=== PATIENT | female | born 1960 | race Caucasian/White ===

== ENCOUNTER 2016-08-20 23:52 | Emergency (ER) | payer OTHER ==
[~2016-08-20] VITALS: Ht 160 cm; Wt 45.0 kg
[2016-08-20 23:52] VITALS: RESP 15; O2SAT 98
[~2016-08-20 23:52] MED LIST: CITA20TA4 PO; LAMO100 PO; LORA1TAB PO; PNEU13P IM
[2016-08-21] MEDS ORDERED: SODIUM CHLOR 0.9% 1000 ML INJ 1,000 ML IV ONE ×2 (00:30→02:45)
--- NOTE | 2016-08-21 00:39 | PD ---
Physical Exam Narrative General: The patient is a well-developed well-nourished female, drowsy on my arrival to the room, however she is able to be awakened when uncovered repeatedly states that she is cold. The patient when awakened is able to answer orientation questions without difficulty. Head and Neck exam: Head is normocephalic atraumatic. Eyes: Pupils are equal round and reactive to light. Nose: Midline septum with pink mucous membranes Mouth: Dentition unremarkable. Moist mucus membranes. Posterior oropharynx is not erythematous. No tonsillar hypertrophy. Uvula midline. Airway patent. Neck: No palpable lymphadenopathy. No nuchal rigidity. No thyromegaly. Cardiovascular: Regular rate and rhythm without murmurs, gallops, or rubs. Lungs: Clear to auscultation bilaterally. No wheezes, rhonchi, or rales. Abdomen: Soft, without tenderness to palpation in all 4 quadrants of the abdomen. No guarding, rebound, or rigidity. Normal bowel sounds are audible. Extremities: No clubbing, cyanosis, or edema. 2+ pulses in all 4 extremities. Back: No spinous process tenderness to palpation. No costovertebral angle tenderness to palpation. Neurologic Exam: She is drowsy on examination and uncooperative with formal neurologic examination, however she does spontaneously move all extremities with 5 over 5 strength and has intact sensation over all dermatomes. She has no evidence of facial asymmetry. She is oriented to person, place, time, and situation. Skin Exam: No rash noted. Intact skin that is warm and dry. Data Data Last Documented VS Vital Signs Date Time Temp Pulse Resp B/P Pulse Ox O2 Delivery O2 Flow Rate FiO2 08/21/16 02:56 76 14 105/76 98 Room Air 08/20/16 23:52 2 Orders Complete Blood Count With Diff (08/21/16 00:16) Comprehensive Metabolic Panel (08/21/16 00:16) Electrocardiogram (08/21/16 00:16) Oximetry (08/21/16 00:16) Iv Access Insert/Monitor (08/21/16 00:16) Ecg Monitoring (08/21/16 00:16) Oxygen Administration (08/21/16 00:16) Psych Screen (08/21/16 00:16) Blood Glucose (08/21/16 00:16) Drug Screen, Random Urine (08/21/16 00:16) Alcohol (Ethanol) (08/21/16 00:16) Salicylates (Aspirin) (08/21/16 00:16) Tylenol (Acetaminophen) (08/21/16 00:16) Sodium Chlor 0.9% 1000 Ml Inj (Ns 1000 M (08/21/16 00:30) Call Poison Control (08/21/16 00:16) ^ Seizure Precautions (08/21/16 00:36) Sodium Chlor 0.9% 1000 Ml Inj (Ns 1000 M (08/21/16 02:45) Thiamine Inj (Thiamine Inj) (08/21/16 02:45) Labs Laboratory Tests Test 08/21/16 00:10 White Blood Count 5.1 TH/MM3 Red Blood Count 4.10 MIL/MM3 Hemoglobin 12.1 GM/DL Hematocrit 35.8 % Mean Corpuscular Volume 87.5 FL Mean Corpuscular Hemoglobin 29.5 PG Mean Corpuscular Hemoglobin 33.7 % Concent Red Cell Distribution Width 13.3 % Platelet Count 177 TH/MM3 Mean Platelet Volume 9.2 FL Neutrophils (%) (Auto) 39.7 % Lymphocytes (%) (Auto) 46.3 % Monocytes (%) (Auto) 4.2 % Eosinophils (%) (Auto) 9.2 % Basophils (%) (Auto) 0.6 % Neutrophils # (Auto) 2.0 TH/MM3 Lymphocytes # (Auto) 2.4 TH/MM3 Monocytes # (Auto) 0.2 TH/MM3 Eosinophils # (Auto) 0.5 TH/MM3 Basophils # (Auto) 0.0 TH/MM3 CBC Comment DIFF FINAL Differential Comment Sodium Level 142 MEQ/L Potassium Level 3.3 MEQ/L Chloride Level 110 MEQ/L Carbon Dioxide Level 26.2 MEQ/L Anion Gap 6 MEQ/L Blood Urea Nitrogen 7 MG/DL Creatinine 0.71 MG/DL Estimat Glomerular Filtration 85 ML/MIN Rate Random Glucose 88 MG/DL Calcium Level 7.7 MG/DL Total Bilirubin 0.1 MG/DL Aspartate Amino Transf 15 U/L (AST/SGOT) Alanine Aminotransferase 15 U/L (ALT/SGPT) Alkaline Phosphatase 78 U/L Total Protein 5.9 GM/DL Albumin 3.4 GM/DL Salicylates Level 3.9 MG/DL Acetaminophen Level 2.7 MCG/ML Ethyl Alcohol Level 141 MG/DL [facility] Medical Record Reviewed: Yes Supervised Visit with MERRITT: No Narrative Course During the course of the patients emergency department visit, the patients history, examination, and differential diagnosis were reviewed with the patient. The patient had IV access obtained and blood work sent for analysis. The patient was placed on a bus driver/monitor with oximetry and blood pressure monitoring. The patient's case is checked out to me by Dr. Johnson who initially did the evaluation on the patient. Please see her complete history and physical. The patient's case was checked out to me at the conclusion of her shift. The patient is reportedly under a Perez act. The patient was initially provided normal saline 1 L IV fluid bolus. The patient was given thiamine 100 mg IV, a second liter of normal saline IV fluids while being observed. The patients laboratory studies were reviewed and remarkable for a white count of 5.1, hemoglobin 12.1, platelets 177 with 46.3 lymphocytes, 9.2 eosinophils, CMP is remarkable for a potassium of 3.3, chloride 110, GFR of 85, calcium 7.7, total bilirubin 0.1, total protein 5.9, alcohol level CXLI, acetaminophen 2.7, salicylate 3.9. The patient's mild hypokalemia was supplemented orally. Poison control was contacted regarding this patient's case. The patient's nurse discussed the patient's case with poison control and as the patient has remained stable during her emergency department evaluation other than experiencing drowsiness, the patient can be medically cleared. The patient has therefore been medically cleared for evaluation by the psychiatric screener under a Perez act. Diagnosis Primary Impression: Depression with suicidal ideation Additional Impressions: Intentional drug overdose Qualified Code: T50.902A - Intentional drug overdose, initial encounter Acute alcohol intoxication Qualified Code: F10.929 - Acute alcohol intoxication, with unspecified complication Leti May MD August 21, 2016 00:39
--- NOTE | 2016-08-21 00:41 | PD ---
HPI Chief Complaint: OD/ Ingestion Time Seen by Provider: 00:16 Travel History International Travel<30 days: No Contact w/Intl Traveler<30days: No Traveled to known affect area: No History of Present Illness HPI 56-year-old female was brought in as a Perez act. She was drinking alcohol and had an argument with her boyfriend. She took 5 of her 50 mg trazodone's. Then at 10:30 PM approximately. No history of vomiting after that. When I went to see the patient she was poorly responsive. Unable to give any kind of meaningful history. Her blood pressure was 85/52. PFSH Past Medical History Narrative Medical List of her past medical, surgical, social and family history was reviewed from the nursing note. Bipolar Disorder: Yes Anxiety: Yes Depression: Yes Diminished Hearing: No Neurologic: Yes (RESTLESS LEG SYNDROME) Immunizations Current: Yes ?: Not Menopausal: Yes Past Surgical History Section: Yes (TIMES 2) Social History Alcohol Use: Yes (OCC) Tobacco Use: Yes (1/2 ppd) Substance Use: No Allergies-Medications (Allergen,Severity, Reaction): Coded Allergies: Penicillin (Verified Allergy, Mild, HIVES, 10/25/14) Comments List of her allergies reviewed from the nursing note. Reported Meds & Prescriptions Reported Meds & Active Scripts Active Reported Ativan (Lorazepam) 0.5 Mg Tab Unknown Dose PO Q4H PRN Paxil (Paroxetine HCl) 10 Mg Tab Unknown Dose PO DAILY Trazodone (Trazodone HCl) 50 Mg Tab 50 Mg PO HS Narrative Medication List of her home medications reviewed from the nursing note. Review of Systems Except as stated in HPI: all other systems reviewed are Neg Physical Exam Narrative GENERAL: Poorly responsive, strong alcohol smell on her breath SKIN: Focused skin assessment warm/dry. HEAD: Atraumatic. Normocephalic. EYES: Pupils equal and round. No scleral icterus. No injection or drainage. ENT: No nasal bleeding or discharge. Mucous membranes pink and moist. NECK: Trachea midline. No JVD. CARDIOVASCULAR: Regular rate and rhythm. No murmur appreciated. RESPIRATORY: No accessory muscle use. Clear to auscultation. Breath sounds equal bilaterally. GASTROINTESTINAL: Abdomen soft, non-tender, nondistended. Hepatic and splenic margins not palpable. MUSCULOSKELETAL: No obvious deformities. No clubbing. No cyanosis. No edema. NEUROLOGICAL: GCS of 8 PSYCHIATRIC: Unable to assess Data Data Last Documented VS Vital Signs Date Time Temp Pulse Resp B/P Pulse Ox O2 Delivery O2 Flow Rate FiO2 08/21/16 12:00 80 16 137/63 98 Room Air 08/20/16 23:52 2 Orders Complete Blood Count With Diff (08/21/16 00:16) Comprehensive Metabolic Panel (08/21/16 00:16) Electrocardiogram (08/21/16 00:16) Oximetry (08/21/16 00:16) Iv Access Insert/Monitor (08/21/16 00:16) Ecg Monitoring (08/21/16 00:16) Oxygen Administration (08/21/16 00:16) Psych Screen (08/21/16 00:16) Blood Glucose (08/21/16 00:16) Drug Screen, Random Urine (08/21/16 00:16) Alcohol (Ethanol) (08/21/16 00:16) Salicylates (Aspirin) (08/21/16 00:16) Tylenol (Acetaminophen) (08/21/16 00:16) Sodium Chlor 0.9% 1000 Ml Inj (Ns 1000 M (08/21/16 00:30) Call Poison Control (08/21/16 00:16) ^ Seizure Precautions (08/21/16 00:36) Sodium Chlor 0.9% 1000 Ml Inj (Ns 1000 M (08/21/16 02:45) Thiamine Inj (Thiamine Inj) (08/21/16 02:45) Labs Laboratory Tests Test 08/21/16 08/21/16 00:10 01:00 White Blood Count 5.1 TH/MM3 Red Blood Count 4.10 MIL/MM3 Hemoglobin 12.1 GM/DL Hematocrit 35.8 % Mean Corpuscular Volume 87.5 FL Mean Corpuscular Hemoglobin 29.5 PG Mean Corpuscular Hemoglobin 33.7 % Concent Red Cell Distribution Width 13.3 % Platelet Count 177 TH/MM3 Mean Platelet Volume 9.2 FL Neutrophils (%) (Auto) 39.7 % Lymphocytes (%) (Auto) 46.3 % Monocytes (%) (Auto) 4.2 % Eosinophils (%) (Auto) 9.2 % Basophils (%) (Auto) 0.6 % Neutrophils # (Auto) 2.0 TH/MM3 Lymphocytes # (Auto) 2.4 TH/MM3 Monocytes # (Auto) 0.2 TH/MM3 Eosinophils # (Auto) 0.5 TH/MM3 Basophils # (Auto) 0.0 TH/MM3 CBC Comment DIFF FINAL Differential Comment Sodium Level 142 MEQ/L Potassium Level 3.3 MEQ/L Chloride Level 110 MEQ/L Carbon Dioxide Level 26.2 MEQ/L Anion Gap 6 MEQ/L Blood Urea Nitrogen 7 MG/DL Creatinine 0.71 MG/DL Estimat Glomerular Filtration 85 ML/MIN Rate Random Glucose 88 MG/DL Calcium Level 7.7 MG/DL Total Bilirubin 0.1 MG/DL Aspartate Amino Transf 15 U/L (AST/SGOT) Alanine Aminotransferase 15 U/L (ALT/SGPT) Alkaline Phosphatase 78 U/L Total Protein 5.9 GM/DL Albumin 3.4 GM/DL Salicylates Level 3.9 MG/DL Acetaminophen Level 2.7 MCG/ML Ethyl Alcohol Level 141 MG/DL Urine Opiates Screen NEG Urine Barbiturates Screen NEG Urine Amphetamines Screen NEG Urine Benzodiazepines Screen NEG Urine Cocaine Screen POS Urine Cannabinoids Screen NEG MDM Medical Decision Making Medical Screen Exam Complete: Yes Emergency Medical Condition: Yes Medical Record Reviewed: Yes Interpretation(s) Twelve-lead EKG was reviewed by me. Normal sinus rhythm, normal axis, nonspecific ST-T wave changes. Heart rate of 50 bpm. Differential Diagnosis Acute alcohol intoxication, altered mental status, intentional overdose Narrative Course 12:39 AM given her GCS she has been moved to the high acuity medical pod. I have transferred her care to Dr. May. Awaiting blood test results. I've ordered 1 L of IV fluid bolus. I've asked the nurse to call poison control. Seizure precautions were ordered which could be due to trazodone. Procedures EKG Prior to Arrival: No Diagnosis Primary Impression: Intentional drug overdose Qualified Code: T50.902A - Intentional drug overdose, initial encounter Additional Impressions: Acute alcohol intoxication Qualified Code: F10.929 - Acute alcohol intoxication, with unspecified complication Suicide gesture Qualified Code: X83.8XXA - Suicide gesture, initial encounter Major depression Qualified Code: F32.9 - Major depressive disorder with single episode, remission status unspecified Rosanna Johnson MD August 21, 2016 00:41
[2016-08-21 00:43] VITALS: BP 100/56; PULSE 64; RESP 18; O2SAT 100
[2016-08-21] MEDS ORDERED: LORA-392 PO (00:44)
[2016-08-21] MEDS ORDERED: PAXI10TA2 PO (00:44)
[2016-08-21] MEDS ORDERED: TRAZ50TA12 PO (00:44)
[2016-08-21 00:59] LABS: BASOPHIL % 0.6 % (0.0-2.0); EOSINOPHIL # 0.5 TH/MM3 (0-0.4); EOSINOPHIL % 9.2 % (0.0-4.0); HEMATOCRIT 35.8 % (35.0-46.0); HEMO FLAGS DIFF FINAL; LYMPH % 46.3 % (9.0-44.0); LYMPHOCYTE # 2.4 TH/MM3 (1.0-4.8); MEAN CELL VOLUME 87.5 FL (80.0-100.0); MEAN CORPUSCULAR HEMOGLOBIN 29.5 PG (27.0-34.0); MEAN CORPUSCULAR HGB CONC 33.7 % (32.0-36.0); MONO % 4.2 % (0.0-8.0); NEUT % 39.7 % (16.0-70.0); PLATELET COUNT 177 TH/MM3 (150-450); RED CELL DISTRIBUTION WIDTH 13.3 % (11.6-17.2); WHITE BLOOD COUNT 5.1 TH/MM3 (4.0-11.0)
[2016-08-21 01:09] LABS: ALT (GPT) 15 U/L (10-53); ANION GAP 6 MEQ/L (5-15); AST (GOT) 15 U/L (15-37); BICARBONATE 26.2 MEQ/L (21.0-32.0); BLOOD UREA NITROGEN 7 MG/DL (7-18); CHLORIDE 110 MEQ/L (98-107); GLOMERULAR FILTRATION RATE 85 ML/MIN (>89); POTASSIUM 3.3 MEQ/L (3.5-5.1); SODIUM (NA) 142 MEQ/L (136-145)
[2016-08-21 01:11] LABS: ACETAMINOPHEN 2.7 MCG/ML (10.0-30.0); ALKALINE PHOSPHATASE 78 U/L (45-117); TOTAL BILIRUBIN ADULT 0.1 MG/DL (0.2-1.0)
[2016-08-21] MEDS ORDERED: THIAMINE INJ 100 MG in SODIUM CHLORIDE 0.9% INJ 100 ML IV ONE (02:45)
[2016-08-21 02:56] VITALS: BP 105/76; PULSE 76; RESP 14; O2SAT 98
[2016-08-21 06:38] VITALS: BP 122/69; PULSE 74; RESP 14; O2SAT 97
[2016-08-21 09:35] LABS: AMPHETAMINE, URINE NEG (NEG); BARBITURATES, URINE NEG (NEG); COCAINE, URINE POS (NEG)
[2016-08-21 12:00] VITALS: BP 137/63; PULSE 80; RESP 16; O2SAT 98
--- NOTE | 2016-08-21 12:14 | PD ---
History of Present Illness Chief Complaint: OD/ Ingestion Time Seen by Provider: 12:00 Travel History International Travel<30 Days: No Contact w/Intl Traveler<30days: No Known affected area: No Legal Status Legal Status: Perez Act History of Present Illness: History of Present Illness HPI 56-year-old female with a reported history of bipolar depression was brought in as a Perez act initiated by [place] [employer]. As per the BA report " she was told that she may be facing eviction. She was arguing with her and she began stressing out and she took 6 Trazodone in an attempt to harm herself" She was drinking alcohol and had an argument with her boyfriend. Patient was monitored in main ed. Seen. Record reviewed. Current BAL of 141 and positive toxicology for cocaine. She has not presented any behavioral concerns since she has been in ED. Asleep but awakens easily. Alert and oriented female who is maintaining basic hygiene. Speech is clear, logical, no pressure. No psychosis. No jennifer or hypomania. Denies suicidal or homicidal ideation. " I took the pills after an argument to go to sleep and not to kill myself" . If I wanted to hurt myself there were other pills that I could have taken. Patient is currently denying any acute psychiatric symptomatology and is requesting discharge as she has to work. PFSH Past Medical History Bipolar Disorder: Yes Anxiety: Yes Depression: Yes Diminished Hearing: No Neurologic: Yes (RESTLESS LEG SYNDROME) Immunizations Current: Yes ?: Not Menopausal: Yes Past Surgical History Section: Yes (TIMES 2) Psychiatric History Psychiatric History Not in outpatient treatment. PCP prescribes psychiatric medication. Has been a patient at [facility] outpatient. Hx of SIB by cutting History of Inpatient Treatment: Yes ([facility] at age 41 years. ) Guns or firearms in home: No Social History . Lives with . Works as a dramatic teacher. Hx Alcohol Use: Yes (OCC) Hx Tobacco Use: Yes (1/2 ppd) Hx Substance Use: Yes (Reports previous hx) Substance Use Type: Alcohol, Cocaine Hx of Substance Use Treatment: No Family Psychiatric History None reported. Allergies-Medications (Allergen,Severity, Reaction): Coded Allergies: Penicillin (Verified Allergy, Mild, HIVES, 10/25/14) Reported Meds & Prescriptions Reported Meds & Active Scripts Active Reported Ativan (Lorazepam) 0.5 Mg Tab Unknown Dose PO Q4H PRN Paxil (Paroxetine HCl) 10 Mg Tab Unknown Dose PO DAILY Trazodone (Trazodone HCl) 50 Mg Tab 50 Mg PO HS Review of Systems Except as stated in HPI: all other systems reviewed are Neg Musculoskeletal: COMPLAINS OF: Joint pain (Hips) Exam Alert: Yes Morning View: Person (ox4) Mood: Calm Affect: Appropriate Speech: Clear, Logical Eye Contact: Normal Memory Intact: Comment (not impaired) Hallucinations: Other (negative) Delusions: No Suicidal: Ideation (denies any) Homicidal: Ideation (denioes) Insight/Judgement Fair. Not impaired MDM Medical Decision Making Medical Record Reviewed: Yes Assessment/Plan 56 year old female with history of bipolar depression who in context of alcohol and cocaine intoxication was arguing with her and then took a reported 300 mg of Trazodone . She deeis that this was a sucide attempt but rather that she wanted to sleep. Patient also is minimizing her use of alcohol and cocaine. At this time she does not meet criteria for BA. The BA will be lifted and she will be discharged home. Follow up with her PCP. Does not meet BA criteria Cleared for discharge by psychiatry. Orders Complete Blood Count With Diff (08/21/16 00:16) Comprehensive Metabolic Panel (08/21/16 00:16) Electrocardiogram (08/21/16 00:16) Oximetry (08/21/16 00:16) Iv Access Insert/Monitor (08/21/16 00:16) Ecg Monitoring (08/21/16 00:16) Oxygen Administration (08/21/16 00:16) Psych Screen (08/21/16 00:16) Blood Glucose (08/21/16 00:16) Drug Screen, Random Urine (08/21/16 00:16) Alcohol (Ethanol) (08/21/16 00:16) Salicylates (Aspirin) (08/21/16 00:16) Tylenol (Acetaminophen) (08/21/16 00:16) Sodium Chlor 0.9% 1000 Ml Inj (Ns 1000 M (5/16/17 00:30) Call Poison Control (08/21/16 00:16) ^ Seizure Precautions (08/21/16 00:36) Sodium Chlor 0.9% 1000 Ml Inj (Ns 1000 M (08/21/16 02:45) Thiamine Inj (Thiamine Inj) (08/21/16 02:45) Results Vital Signs Date Time Temp Pulse Resp B/P Pulse Ox O2 Delivery O2 Flow Rate FiO2 08/21/16 06:38 74 14 122/69 97 Room Air 08/21/16 02:56 76 14 105/76 98 Room Air 08/21/16 00:43 64 18 100/56 100 Room Air 08/20/16 23:52 98 Nasal Cannula 2 08/20/16 23:52 75 15 98 Room Air 08/20/16 23:52 15 98 Nasal Cannula 2 Laboratory Tests Test 08/21/16 08/21/16 00:10 01:00 White Blood Count 5.1 Red Blood Count 4.10 Hemoglobin 12.1 Hematocrit 35.8 Mean Corpuscular Volume 87.5 Mean Corpuscular Hemoglobin 29.5 Mean Corpuscular Hemoglobin 33.7 Concent Red Cell Distribution Width 13.3 Platelet Count 177 Mean Platelet Volume 9.2 Neutrophils (%) (Auto) 39.7 Lymphocytes (%) (Auto) 46.3 Monocytes (%) (Auto) 4.2 Eosinophils (%) (Auto) 9.2 Basophils (%) (Auto) 0.6 Neutrophils # (Auto) 2.0 Lymphocytes # (Auto) 2.4 Monocytes # (Auto) 0.2 Eosinophils # (Auto) 0.5 Basophils # (Auto) 0.0 CBC Comment DIFF FINAL Differential Comment Sodium Level 142 Potassium Level 3.3 Chloride Level 110 Carbon Dioxide Level 26.2 Anion Gap 6 Blood Urea Nitrogen 7 Creatinine 0.71 Estimat Glomerular Filtration 85 Rate Random Glucose 88 Calcium Level 7.7 Total Bilirubin 0.1 Aspartate Amino Transf 15 (AST/SGOT) Alanine Aminotransferase 15 (ALT/SGPT) Alkaline Phosphatase 78 Total Protein 5.9 Albumin 3.4 Salicylates Level 3.9 Acetaminophen Level 2.7 Ethyl Alcohol Level 141 Urine Opiates Screen NEG Urine Barbiturates Screen NEG Urine Amphetamines Screen NEG Urine Benzodiazepines Screen NEG Urine Cocaine Screen POS Urine Cannabinoids Screen NEG Diagnosis Primary Impression: Acute alcohol intoxication Additional Impression: bipolar disorder Ruled Out: Depression with suicidal ideation, Intentional drug overdose Psychiatrically Cleared: Yes Med/ Other Pt Specific Info: No Change to Meds Disposition: 01 DISCHARGE HOME Condition: Stable Problem Qualifiers Primary Impression: Acute alcohol intoxication Qualified Code: F10.920 - Acute alcohol intoxication, uncomplicated BrownAkanksha Estevez [facility] August 21, 2016 12:13
--- NOTE | 2016-08-21 14:02 | EKG ---
Date Performed: 08/21/2016 Time Performed: 00:03:42 PTAGE: 56 years EKG: Sinus rhythm NORMAL ECG NO PREVIOUS TRACING DOCTOR: Silas Montemayor Interpretating Date/Time 08/21/2016 14:00:54
== END 2016-08-21 13:40 | disposition home or self-care (01) ==
LOC: NEPE 23:52
DX: T43.212A Poisoning by selective serotonin and norepinephrine reuptake inhibitors, intentional self-harm, initial encounter (principal); T14.91 Suicide attempt; F10.129 Alcohol abuse with intoxication, unspecified; F41.8 Other specified anxiety disorders; F17.210 Nicotine dependence, cigarettes, uncomplicated; F14.90 Cocaine use, unspecified, uncomplicated; Y90.6 Blood alcohol level of 120-199 mg/100 ml; Z88.0 Allergy status to penicillin
CPT/HCPCS: 80053; 80307; 85025; 93005; 96374; 96375; 96376; 99284; J3411; J7030

== ENCOUNTER 2016-10-10 17:05 | Emergency (ER) | payer OTHER ==
[~2016-10-10] VITALS: Ht 167.6 cm; Wt 56.8 kg
[~2016-10-10 17:05] MED LIST changes: -CITA20TA4 PO; -LAMO100 PO; +LORA-392 PO; -LORA1TAB PO; +PAXI10TA2 PO; -PNEU13P IM; +TRAZ50TA12 PO
[2016-10-10 17:09] VITALS: BP 95/60; PULSE 90; RESP 16; TEMP 98.3; O2SAT 98
[2016-10-10] MEDS ORDERED: ROPI.25 PO (17:24)
[2016-10-10] MEDS ORDERED: LIDOCAINE HCL 1% PF 30 ML VIAL ONE (17:59)
--- NOTE | 2016-10-10 18:36 | PD ---
HPI Chief Complaint: Skin Problem Time Seen by Provider: 18:00 Travel History International Travel<30 days: No Contact w/Intl Traveler<30days: No Traveled to known affect area: No History of Present Illness HPI 56-year-old female presents to the emergency room for evaluation of an abscess to her abdomen that started about 1 week ago as a bug bite. Patient states it was probably a mosquito bite and very itchy at first. She does not remember itching it significantly. She states about 4 days ago it began to become painful and yesterday it developed redness. She has had no drainage. She poked a needle in it yesterday to try to drain it. She denies history of diabetes. PFSH Past Medical History Bipolar Disorder: Yes Anxiety: Yes Depression: Yes Diminished Hearing: No Neurologic: Yes (RESTLESS LEG SYNDROME) Immunizations Current: Yes Influenza Vaccination: Yes ?: Not Menopausal: Yes Past Surgical History Section: Yes (TIMES 2) Social History Alcohol Use: Yes (OCC) Tobacco Use: Yes (1/2 ppd) Substance Use: Yes (Reports previous hx) Allergies-Medications (Allergen,Severity, Reaction): Coded Allergies: Penicillin (Verified Allergy, Mild, HIVES, 10/10/16) Reported Meds & Prescriptions Reported Meds & Active Scripts Active Reported Requip (Ropinirole HCl) 0.25 Mg Tab 0.25 Mg PO HS Paxil (Paroxetine HCl) 10 Mg Tab Unknown Dose PO DAILY Trazodone (Trazodone HCl) 50 Mg Tab 50 Mg PO HS Review of Systems Except as stated in HPI: all other systems reviewed are Neg Physical Exam Narrative GENERAL: Well-nourished, well-developed female in no acute distress. Afebrile. Ambulatory. SKIN: Focused skin assessment warm/dry. There is an indurated area in the epigastric region which measures about 3 cm in diameter. It is fluctuant but there is no pointing or drainage. There is a zone of inflammation around it but no lymphangitis. HEAD: Normocephalic. EYES: No scleral icterus. No injection or drainage. NECK: Supple, trachea midline. No JVD or lymphadenopathy. CARDIOVASCULAR: Regular rate and rhythm without murmurs, gallops, or rubs. RESPIRATORY: Breath sounds equal bilaterally. No accessory muscle use. PSYCHIATRIC: No delusional thought processes. No hallucinations. Data Data Last Documented VS Vital Signs Date Time Temp Pulse Resp B/P Pulse Ox O2 Delivery O2 Flow Rate FiO2 10/10/16 17:09 98.3 90 16 95/60 98 Orders Lidocaine Pf 1% Inj (Xylocaine-Mpf 1% In (10/10/16 17:59) MDM Medical Decision Making Medical Screen Exam Complete: Yes Emergency Medical Condition: Yes Medical Record Reviewed: Yes Differential Diagnosis Abscess, cellulitis, folliculitis Narrative Course 56-year-old female presents to the emergency room for evaluation of an abscess to the periumbilical region that has been present for the past week. Patient got bit by a mosquito bite one week ago and developed redness and pain to the area subsequently. She denies systemic signs of infection. Vital signs stable. Patient is afebrile and well-appearing in the emergency room. Physical exam reveals a 3 cm abscess that is extremely tender to palpation on the abdomen. No lymphangitis. Abscess was drained, see procedure note for details. Patient discharged with Bactrim and told to follow up with a primary care physician or return for worsening symptoms. She understands and agrees to plan. Procedures Procedure Narrative INCISION AND DRAINAGE OF ABSCESS: The area was prepped and was sterilely draped. A subcutaneous wheal of 1% lidocaine with a total number 2 mL was used to anesthetize the area properly. A number 11 scalpel was used to make a 1 cm incision across the area of the abscess. The abscess was drained, complex loculations were broken down, and irrigated with normal saline. Cultures were obtained. Sterile dressing applied. Diagnosis Primary Impression: Abscess Referrals: Primary Care Physician Patient Instructions: Abscess (ED), General Instructions Additional Instructions: Rest and drink plenty of fluids. Take Bactrim as directed, until gone. Follow up with a primary care physician. Return to emergency room for worsening symptoms, as discussed. Med/Other Pt SpecificInfo: Prescription(s) given Disposition: 01 DISCHARGE HOME Condition: Stable Danielle Camejo Oct 10, 2016 18:36
[2016-10-10] MEDS ORDERED: BACT800T5 PO (19:09)
[2016-10-10] MEDS ORDERED: LIDOCAINE HCL 1% PF 30 ML VIAL INFIL ONE (19:15)
== END 2016-10-10 19:16 | disposition home or self-care (01) ==
LOC: PHEFT 17:05
DX: L02.211 Cutaneous abscess of abdominal wall (principal); B95.61 Methicillin susceptible Staphylococcus aureus infection as the cause of diseases classified elsewhere; F17.200 Nicotine dependence, unspecified, uncomplicated; Z86.59 Personal history of other mental and behavioral disorders; Z86.69 Personal history of other diseases of the nervous system and sense organs
CPT/HCPCS: 10060; 86403; 87070; 87186; 87205

== ENCOUNTER 2017-01-11 12:30 | Emergency (ER) | payer OTHER ==
[~2017-01-11] VITALS: Ht 167.6 cm; Wt 56.5 kg
[2017-01-11] VITALS (12 sets, daily range): BP systolic 94–142; BP diastolic 51–86; PULSE 71–83; RESP 15–22; TEMP 98.6; O2SAT 96–100
[~2017-01-11 12:30] MED LIST changes: +BACT800T5 PO; -LORA-392 PO; +ROPI.25 PO
[2017-01-11] MEDS ORDERED: LORA-373 PO (12:52)
[2017-01-11] MEDS ORDERED: SODIUM CHLOR 0.9% 1000 ML INJ 1,000 ML IV ONE (13:20)
[2017-01-11] MEDS ORDERED: SODIUM CHLORIDE 0.9% FLUSH 10 ML FLUSH IVF PRN (13:30)
--- NOTE | 2017-01-11 13:30 | PD ---
HPI Chief Complaint: OD/ Ingestion Time Seen by Provider: 13:11 Travel History International Travel<30 days: No Contact w/Intl Traveler<30days: No Traveled to known affect area: No History of Present Illness HPI This 56-year-old female is brought in after an overdose. She says that if he hours ago she took about 18 tablets of paroxetine. She is feeling tired. She says that her intent was to kill her self. She has overdosed in the past, usually on sleeping pills she has a history of depression. She denies recent alcohol use. Has used cocaine in the past but not today. She does not have a history of high blood pressure or diabetes. He PFSH Past Medical History Bipolar Disorder: Yes Anxiety: Yes Depression: Yes Diminished Hearing: No Neurologic: Yes (RESTLESS LEG SYNDROME) Immunizations Current: Yes ?: Not Menopausal: Yes Past Surgical History Section: Yes (TIMES 2) Social History Alcohol Use: Yes (OCC) Tobacco Use: Yes (1/2 ppd) Substance Use: Yes (RECENT COCAINE USE) Allergies-Medications (Allergen,Severity, Reaction): Coded Allergies: penicillin G (Unverified Allergy, Mild, HIVES, 01/11/17) Reported Meds & Prescriptions Reported Meds & Active Scripts Active Reported Lorazepam 0.5 Mg Tab Unknown Dose PO DAILY PRN Requip (Ropinirole HCl) 0.25 Mg Tab 0.25 Mg PO HS Paxil (Paroxetine HCl) 10 Mg Tab 20 Mg PO DAILY Trazodone (Trazodone HCl) 50 Mg Tab 50 Mg PO HS Review of Systems General / Constitutional: No: Fever, Chills Eyes: No: Diploplia, Blurred Vision HENT: No: Headaches, Vertigo Cardiovascular: No: Chest Pain or Discomfort, Palpitations Respiratory: No: Cough, Shortness of Breath Gastrointestinal: No: Nausea, Vomiting Genitourinary: No: Urgency, Frequency Musculoskeletal: No: Myalgias, Arthralgias Skin: No Rash, No Itching Neurologic: No: Weakness, Dizziness Hematologic/Lymphatic: No: Easy Bruising Physical Exam Narrative GENERAL: Well-developed female SKIN: Focused skin assessment warm/dry. HEAD: Atraumatic. Normocephalic. EYES: Pupils equal and round. No scleral icterus. No injection or drainage. ENT: No nasal bleeding or discharge. Mucous membranes pink and moist. NECK: Trachea midline. No JVD. CARDIOVASCULAR: Regular rate and rhythm. No murmur appreciated. RESPIRATORY: No accessory muscle use. Clear to auscultation. Breath sounds equal bilaterally. GASTROINTESTINAL: Abdomen soft, non-tender, nondistended. Hepatic and splenic margins not palpable. MUSCULOSKELETAL: No obvious deformities. No clubbing. No cyanosis. No edema. NEUROLOGICAL: Awake and alert. No obvious cranial nerve deficits. Motor grossly within normal limits. Normal speech. PSYCHIATRIC: Depressed mood and affect; insight and judgment limited. Patient does say she is suicidal Data Data Last Documented VS Vital Signs Date Time Temp Pulse Resp B/P (MAP) Pulse Ox O2 Delivery O2 Flow Rate FiO2 01/11/17 13:20 76 20 131/84 (100) 100 01/11/17 12:41 98.6 Orders Orders Electrocardiogram (01/11/17 13:20) Complete Blood Count With Diff (01/11/17 13:20) Comprehensive Metabolic Panel (01/11/17 13:20) Urinalysis - C+S If Indicated (01/11/17 13:20) Iv Access Insert/Monitor (01/11/17 13:20) Ecg Monitoring (01/11/17 13:20) Oximetry (01/11/17 13:20) Sodium Chloride 0.9% Flush (Ns Flush) (01/11/17 13:30) Sodium Chlor 0.9% 1000 Ml Inj (Ns 1000 M (01/11/17 13:20) Drug Screen, Random Urine (01/11/17 13:20) Alcohol (Ethanol) (01/11/17 13:20) Tylenol (Acetaminophen) (01/11/17 13:20) MDM Medical Decision Making Medical Screen Exam Complete: Yes Emergency Medical Condition: Yes Medical Record Reviewed: Yes Differential Diagnosis Differential includes overdose, suicidal intent Narrative Course Patient will be evaluated medically and observed. If medically cleared she will be Nicholas Saenz MD Jan 11, 2017 13:30
[2017-01-11 13:51] LABS: AUTOMATED NEUTROPHIL # 5.1 TH/MM3 (1.8-7.7); BASOPHIL % 0.5 % (0.0-2.0); EOSINOPHIL # 0.4 TH/MM3 (0-0.4); HEMATOCRIT 39.5 % (35.0-46.0); HEMO FLAGS DIFF FINAL; LYMPH % 25.1 % (9.0-44.0); LYMPHOCYTE # 1.9 TH/MM3 (1.0-4.8); MEAN CORPUSCULAR HGB CONC 33.4 % (32.0-36.0); MONO % 3.7 % (0.0-8.0); NEUT % 65.7 % (16.0-70.0); PLATELET COUNT 214 TH/MM3 (150-450); RED BLOOD COUNT 4.55 MIL/MM3 (4.00-5.30); RED CELL DISTRIBUTION WIDTH 12.8 % (11.6-17.2); WHITE BLOOD COUNT 7.7 TH/MM3 (4.0-11.0)
[2017-01-11 13:54] LABS: BLOOD, URINE NEG (NEG); GLUCOSE,URINE NEG (NEG); KETONE, URINE NEG (NEG); NITRITE,URINE NEG (NEG); PH, URINE 5.5 (5.0-8.5)
[2017-01-11 14:00] LABS: CHLORIDE 104 MEQ/L (98-107); POTASSIUM 3.9 MEQ/L (3.5-5.1); SODIUM (NA) 138 MEQ/L (136-145)
[2017-01-11 14:01] LABS: METHOD OF COLLECTION CLEAN CATCH; URINE COLOR YELLOW (YELLW/STRAW)
[2017-01-11 14:03] LABS: BACTERIA, URINE FEW /hpf; COMMENT (UR) CULT NOT INDICATED; CULTURE IF INDICATED CULT NOT INDICATED; RBC, URINE 0-3 /hpf (0-3); SQUAMOUS EPITHELIAL CELL URINE > 8 /hpf (0-5); WBC, URINE 0-2 /hpf (0-5)
[2017-01-11 14:05] LABS: ANION GAP 8 MEQ/L (5-15)
[2017-01-11 14:06] LABS: BLOOD UREA NITROGEN 16 MG/DL (7-18)
[2017-01-11 14:08] LABS: ALT (GPT) 20 U/L (10-53)
[2017-01-11 14:09] LABS: GLOMERULAR FILTRATION RATE 79 ML/MIN (>89)
[2017-01-11 14:10] LABS: TOTAL BILIRUBIN ADULT 0.2 MG/DL (0.2-1.0)
[2017-01-11 14:11] LABS: ALKALINE PHOSPHATASE 92 U/L (45-117)
[2017-01-11 14:13] LABS: AST (GOT) 11 U/L (15-37)
[2017-01-11 14:26] LABS: ALCOHOL LESS THAN 3 MG/DL (0-5)
--- NOTE | 2017-01-11 18:16 | PD ---
Data Data Last Documented VS Vital Signs Date Time Temp Pulse Resp B/P (MAP) Pulse Ox O2 Delivery O2 Flow Rate FiO2 01/11/17 17:46 74 20 100/60 (73) 96 01/11/17 12:41 98.6 Orders Orders Electrocardiogram (01/11/17 13:20) Complete Blood Count With Diff (01/11/17 13:20) Comprehensive Metabolic Panel (01/11/17 13:20) Urinalysis - C+S If Indicated (01/11/17 13:20) Iv Access Insert/Monitor (01/11/17 13:20) Ecg Monitoring (01/11/17 13:20) Oximetry (01/11/17 13:20) Sodium Chloride 0.9% Flush (Ns Flush) (01/11/17 13:30) Sodium Chlor 0.9% 1000 Ml Inj (Ns 1000 M (01/11/17 13:20) Drug Screen, Random Urine (01/11/17 13:20) Alcohol (Ethanol) (01/11/17 13:20) Tylenol (Acetaminophen) (01/11/17 13:20) Electrocardiogram (01/11/17 15:44) Labs Laboratory Tests Test 01/11/17 13:30 01/11/17 13:45 White Blood Count 7.7 TH/MM3 Red Blood Count 4.55 MIL/MM3 Hemoglobin 13.2 GM/DL Hematocrit 39.5 % Mean Corpuscular Volume 87.0 FL Mean Corpuscular Hemoglobin 29.0 PG Mean Corpuscular Hemoglobin Concent 33.4 % Red Cell Distribution Width 12.8 % Platelet Count 214 TH/MM3 Mean Platelet Volume 8.9 FL Neutrophils (%) (Auto) 65.7 % Lymphocytes (%) (Auto) 25.1 % Monocytes (%) (Auto) 3.7 % Eosinophils (%) (Auto) 5.0 % Basophils (%) (Auto) 0.5 % Neutrophils # (Auto) 5.1 TH/MM3 Lymphocytes # (Auto) 1.9 TH/MM3 Monocytes # (Auto) 0.3 TH/MM3 Eosinophils # (Auto) 0.4 TH/MM3 Basophils # (Auto) 0.0 TH/MM3 CBC Comment DIFF FINAL Differential Comment Blood Urea Nitrogen 16 MG/DL Creatinine 0.76 MG/DL Random Glucose 100 MG/DL Total Protein 7.4 GM/DL Albumin 3.8 GM/DL Calcium Level 8.8 MG/DL Alkaline Phosphatase 92 U/L Aspartate Amino Transf (AST/SGOT) 11 U/L Alanine Aminotransferase (ALT/SGPT) 20 U/L Total Bilirubin 0.2 MG/DL Sodium Level 138 MEQ/L Potassium Level 3.9 MEQ/L Chloride Level 104 MEQ/L Carbon Dioxide Level 26.0 MEQ/L Anion Gap 8 MEQ/L Estimat Glomerular Filtration Rate 79 ML/MIN Acetaminophen Level 2.0 MCG/ML Ethyl Alcohol Level LESS THAN 3 MG/DL Urine Collection Type CLEAN CATCH Urine Color YELLOW Urine Turbidity CLEAR Urine pH 5.5 Urine Specific [place] 1.024 Urine Protein NEG mg/dL Urine Glucose (UA) NEG mg/dL Urine Ketones NEG mg/dL Urine Occult Blood NEG Urine Nitrite NEG Urine Bilirubin NEG Urine Leukocyte Esterase NEG Urine RBC 0-3 /hpf Urine WBC 0-2 /hpf Urine Squamous Epithelial Cells > 8 /hpf Urine Bacteria FEW /hpf Microscopic Urinalysis Comment CULT NOT INDICATED Urine Collection Time 13:45 Urine Opiates Screen NEG Urine Barbiturates Screen NEG Urine Amphetamines Screen NEG Urine Benzodiazepines Screen NEG Urine Cocaine Screen POS Urine Cannabinoids Screen NEG MDM Supervised Visit with MERRITT: No Narrative Course The patient was initially evaluated by the previous provider and signed out to me at the beginning of my shift approximate 4:00 PM pending serial EKGs up to 6 hours and disposition. See his note for further details. Briefly this a 56-year-old female who took 19 of her Paxil pills today in an attempt to commit suicide. She denies any other ingestions. She was essentially medically cleared by the previous provider with normal lab work, however poison control recommended serial EKGs every 2 hours up until 6 hours to look for QRS prolongation. EKG performed 6 hours after the patient arrived shows normal intervals with a normal QRS, unchanged from prior. Her vital signs are within normal limits. She is resting comfortably. Physical exam is unremarkable. She will be transferred to our main hospital in [facility] for psychiatric evaluation. Diagnosis Primary Impression: Intentional drug overdose Qualified Codes: T50.902A - Poisoning by unspecified drugs, medicaments and biological substances, intentional self-harm, initial encounter Additional Impression: Depression with suicidal ideation Admitting Information Admitting Physician Requests: Observation Ed Kingsley MD Jan 11, 2017 18:16
[2017-01-12 02:15] VITALS: BP 121/58; PULSE 64; RESP 18; O2SAT 98
--- NOTE | 2017-01-12 05:07 | EKG ---
Date Performed: 01/11/2017 Time Performed: 18:18:07 PTAGE: 56 years EKG: Sinus rhythm NORMAL ECG PREVIOUS TRACING : 01/11/2017 15.51 DOCTOR: Hansel Ellis Interpretating Date/Time 01/12/2017 05:03:54
--- NOTE | 2017-01-12 05:11 | EKG ---
Date Performed: 01/11/2017 Time Performed: 15:51:11 PTAGE: 56 years EKG: Sinus rhythm NORMAL ECG PREVIOUS TRACING : 01/11/2017 13.27 DOCTOR: Hansel Ellis Interpretating Date/Time 01/12/2017 05:06:02
--- NOTE | 2017-01-12 05:16 | EKG ---
Date Performed: 01/11/2017 Time Performed: 13:27:34 PTAGE: 56 years EKG: Sinus rhythm NORMAL ECG PREVIOUS TRACING : 08/21/2016 00.03 DOCTOR: Hansel Ellsi Interpretating Date/Time 01/12/2017 05:08:27
[2017-01-12 06:31] VITALS: BP 123/62; PULSE 71; RESP 19; O2SAT 96
[2017-01-12 11:15] VITALS: BP 106/59; PULSE 68; RESP 16; O2SAT 99
--- NOTE | 2017-01-12 15:25 | PD.PSY.CON ---
Provisional Diagnosis Admission Date [place]. Adjustment disorder with mixed disturbances of emotion and conduct f 43.25, cocaine abuse F 14.10 History of Present Illness Service Psychiatry Consult Requested By EDMD Reason for Consult Perez act Primary Care Physician No Primary Care Physician HPI Patient is a 56 her white female comes here under Perez act By mulu Manning dated 01/11/17 at 1300 hrs. stating patient took overdose today the of suicide attempt. Urine toxicology comes back positive for cocaine patient seen screened in the ED at the present time patient sitting quietly in the room and [facility] nurse Yanni present throughout session. Patient alert oriented female appears her stated age she states she lives with a boyfriend in a house with his mother and stepfather. They've been there for about 3 weeks. Relationship is good with the mother those stepfather is somewhat difficult. This is causing patient some irritability and frustration. She also acknowledges using cocaine on a regular basis has used it for a number of years. She is vague about any alcohol use. Led to her impulsively taking the overdose. Today she denies any suicidal homicidal ideation intent or plan is able contracted to no harm. She has been a client through [facility] act the past and wishes to return there for outpatient services. She also realizes the need to maintain absolute sobriety. At the present time patient longer meets criteria under the Perez act for inpatient psychiatric stay. I'll lift the Perez act allow patient to be discharged herself with no Rx by me to follow [facility] act suite both for medication assessment and substance abuse assessment Review of Systems Constitutional: DENIES: Diaphoretic episodes, Fatigue, Fever, Weight gain, Weight loss, Chills, Dizziness, Change in appetite, Night Sweats Endocrine: DENIES: Abnorml menstrual pattern, Heat/cold intolerance, Polydipsia , Polyuria, Polyphagia Eyes: DENIES: Blurred vision, Diplopia, Eye inflammation, Eye pain, Vision loss , Photosensitivity, Double Vision Ears, nose, mouth, throat: DENIES: Tinnitus, Hearing loss, Vertigo, Nasal discharge, Oral lesions, Throat pain, Hoarseness, Ear Pain, Running Nose, Epistaxis, Sinus Pain, Toothache, Odynophagia Respiratory: DENIES: Apneas, Cough, Snoring, Wheezing, Hemoptysis, Sputum production, Shortness of breath Cardiovascular: DENIES: Chest pain, Palpitations, Syncope, Dyspnea on Exertion , PND, Lower Extremity Edema, Orthopnea, Claudication Gastrointestinal: DENIES: Abdominal pain, Black stools, Bloody stools, Constipation, Diarrhea, Nausea, Vomiting, Difficulty Swallowing, Anorexia Genitourinary: DENIES: Abnormal vaginal bleeding, Dysmenorrhea, Dyspareunia, Sexual dysfunction, Urinary frequency, Urinary incontinence, Urgency, Hematuria , Dysuria, Nocturia, Vaginal discharge Musculoskeletal: DENIES: Joint pain, Muscle aches, Stiffness, Joint Swelling, Back pain, Neck pain Integumentary: DENIES: Abnormal pigmentation, Pruritus, Rash, Nail changes, Breast masses, Breast skin changes, Nipple discharge Hematologic/lymphatic: DENIES: Bruising, Lymphadenopathy Immunologic/allergic: DENIES: Eczema, Urticaria Neurologic: DENIES: Abnormal gait, Headache, Localized weakness, Paresthesias, Seizures, Speech Problems, Tremor, Poor Balance Psychiatric: COMPLAINS OF: Anxiety, Suicidal Ideation Past Family Social History Coded Allergies: penicillin G (Unverified Allergy, Mild, HIVES, 01/11/17) Past Medical History Medically cleared ED Reported Medications Lorazepam (Lorazepam) 0.5 Mg Tab, PO DAILY Y for ANXIETY, TAB 0 Refills 01/11/17 Ropinirole (Requip) 0.25 Mg Tab, 0.25 MG PO HS, #30 TAB 0 Refills 10/10/16 Paroxetine (Paxil) 10 Mg Tab, 20 MG PO DAILY, #30 TAB 0 Refills 08/21/16 Trazodone (Trazodone) 50 Mg Tab, 50 MG PO HS for Control Depression, #30 TAB 0 Refills 08/21/16 Discontinued Scripts Sulfamethoxazole-Trimethoprim (Bactrim DS) 800-160 Mg Tab, 1 TAB PO BID for Infection, #20 TAB 0 Refills Prov:Ariana Madera MD 10/10/16 Current Medications Medications (Trade) Dose Ordered Sig/Concetta Route Start Time Stop Time Status Last Admin (NS Flush) 2 ml UNSCH PRN IVF 01/11/17 13:30 Family Psych History Denies Social History Patient lives with boyfriend and boyfriend's parents house long history cocaine abuse past history alcohol abuse Patient's Strengths (min. 2) Patient calm cooperative irritable [facility] health care Physical Exam Patient seen screaming ED exam reviewed and agreed with Vital Signs Vital Signs Date Time Temp Pulse Resp B/P (MAP) Pulse Ox O2 Delivery O2 Flow Rate FiO2 01/12/17 11:15 68 16 106/59 (75) 99 01/11/17 12:41 98.6 Mental Status Examination Appearance: Appropriate Consciousness: Alert Orientation: x4 Motor Activity: Normal gait Speech: Unremarkable Language: Adequate Fund of Knowledge: Adequate Attention and Concentration: Adequate Memory: Unremarkable Mood: Other (euthymic) Affect: Other (good range of motion intensity) Thought Process & Associations: Intact Thought Content: Appropriate Hallucination Type: None Delusion Type: None Suicidal Ideation: No Suicidal Plan: No Suicidal Intention: No Homicidal Ideation: No Homicidal Plan: No Homicidal Intention: No Insight: Fair Judgment: Impulsive Assessment & Plan Problem List: (1) Adjustment disorder with mixed disturbance of emotions and conduct ICD Codes: F43.25 - Adjustment disorder with mixed disturbance of emotions and conduct (2) Cocaine abuse ICD Codes: F14.10 - Cocaine abuse, uncomplicated Assessment & Plan Estimated LOS: days this time patient along image Perez criteria will lift Ana act as okay by psych for discharge or medically clear and stable, no Rx by me, referred to NA, referral to [facility] Discharge Planning See above Request HC Surrog/Guard Advoc?: No Jose Miguel Portillo MD Jan 12, 2017 15:25
--- NOTE | 2017-01-12 15:25 | PD ---
Physical Exam Date Seen by Provider: Jan 12, 2017 Time Seen by Provider: 15:23 Narrative Patient previously brought in with suicidal ideation and was medically cleared, has been psychiatrically cleared by the psychiatrist. Patient contracts for safety for suicidal ideation and is to follow-up with [facility]. Please see psychiatrist note. Patient is medically stable for discharge. Data Data Last Documented VS Vital Signs Date Time Temp Pulse Resp B/P (MAP) Pulse Ox O2 Delivery O2 Flow Rate FiO2 01/12/17 11:15 68 16 106/59 (75) 99 01/11/17 12:41 98.6 Orders Orders Electrocardiogram (01/11/17 13:20) Complete Blood Count With Diff (01/11/17 13:20) Comprehensive Metabolic Panel (01/11/17 13:20) Urinalysis - C+S If Indicated (01/11/17 13:20) Iv Access Insert/Monitor (01/11/17 13:20) Ecg Monitoring (01/11/17 13:20) Oximetry (01/11/17 13:20) Sodium Chloride 0.9% Flush (Ns Flush) (01/11/17 13:30) Sodium Chlor 0.9% 1000 Ml Inj (Ns 1000 M (01/11/17 13:20) Drug Screen, Random Urine (01/11/17 13:20) Alcohol (Ethanol) (01/11/17 13:20) Tylenol (Acetaminophen) (01/11/17 13:20) Electrocardiogram (01/11/17 15:44) Psych Screen (01/11/17 18:17) Electrocardiogram (01/11/17 18:18) Diet Regular Basic (01/12/17 Breakfast) Diet Regular Basic (01/12/17 Lunch) Labs Laboratory Tests Test 01/11/17 13:30 01/11/17 13:45 White Blood Count 7.7 TH/MM3 Red Blood Count 4.55 MIL/MM3 Hemoglobin 13.2 GM/DL Hematocrit 39.5 % Mean Corpuscular Volume 87.0 FL Mean Corpuscular Hemoglobin 29.0 PG Mean Corpuscular Hemoglobin Concent 33.4 % Red Cell Distribution Width 12.8 % Platelet Count 214 TH/MM3 Mean Platelet Volume 8.9 FL Neutrophils (%) (Auto) 65.7 % Lymphocytes (%) (Auto) 25.1 % Monocytes (%) (Auto) 3.7 % Eosinophils (%) (Auto) 5.0 % Basophils (%) (Auto) 0.5 % Neutrophils # (Auto) 5.1 TH/MM3 Lymphocytes # (Auto) 1.9 TH/MM3 Monocytes # (Auto) 0.3 TH/MM3 Eosinophils # (Auto) 0.4 TH/MM3 Basophils # (Auto) 0.0 TH/MM3 CBC Comment DIFF FINAL Differential Comment Blood Urea Nitrogen 16 MG/DL Creatinine 0.76 MG/DL Random Glucose 100 MG/DL Total Protein 7.4 GM/DL Albumin 3.8 GM/DL Calcium Level 8.8 MG/DL Alkaline Phosphatase 92 U/L Aspartate Amino Transf (AST/SGOT) 11 U/L Alanine Aminotransferase (ALT/SGPT) 20 U/L Total Bilirubin 0.2 MG/DL Sodium Level 138 MEQ/L Potassium Level 3.9 MEQ/L Chloride Level 104 MEQ/L Carbon Dioxide Level 26.0 MEQ/L Anion Gap 8 MEQ/L Estimat Glomerular Filtration Rate 79 ML/MIN Acetaminophen Level 2.0 MCG/ML Ethyl Alcohol Level LESS THAN 3 MG/DL Urine Collection Type CLEAN CATCH Urine Color YELLOW Urine Turbidity CLEAR Urine pH 5.5 Urine Specific [place] 1.024 Urine Protein NEG mg/dL Urine Glucose (UA) NEG mg/dL Urine Ketones NEG mg/dL Urine Occult Blood NEG Urine Nitrite NEG Urine Bilirubin NEG Urine Leukocyte Esterase NEG Urine RBC 0-3 /hpf Urine WBC 0-2 /hpf Urine Squamous Epithelial Cells > 8 /hpf Urine Bacteria FEW /hpf Microscopic Urinalysis Comment CULT NOT INDICATED Urine Collection Time 13:45 Urine Opiates Screen NEG Urine Barbiturates Screen NEG Urine Amphetamines Screen NEG Urine Benzodiazepines Screen NEG Urine Cocaine Screen POS Urine Cannabinoids Screen NEG [facility] Medical Record Reviewed: Yes Supervised Visit with MERRITT: Yes Narrative Course Patient previously brought in with suicidal ideation and was medically cleared, has been psychiatrically cleared by the psychiatrist. Patient contracts for safety for suicidal ideation and is to follow-up with [facility]. Please see psychiatrist note. Patient is medically stable for discharge. Diagnosis Primary Impression: Intentional drug overdose Qualified Codes: T50.902A - Poisoning by unspecified drugs, medicaments and biological substances, intentional self-harm, initial encounter Additional Impression: Depression with suicidal ideation Referrals: [facility] (Out patient) Patient Instructions: General Instructions Disposition: DISCHARGE HOME Condition: Stable Antonio Mitchell Jan 12, 2017 15:25
[2017-01-12 15:56] VITALS: BP 106/59; TEMP 98
== END 2017-01-12 16:30 | disposition home or self-care (01) ==
LOC: PHED 12:30 → NEPJ 01-12 16:30
DX: T43.221A Poisoning by selective serotonin reuptake inhibitors, accidental (unintentional), initial encounter (principal); R45.851 Suicidal ideations; F31.9 Bipolar disorder, unspecified; F41.9 Anxiety disorder, unspecified; G25.81 Restless legs syndrome; F17.200 Nicotine dependence, unspecified, uncomplicated; Z88.0 Allergy status to penicillin; Z79.899 Other long term (current) drug therapy
CPT/HCPCS: 80053; 80307; 81001; 85025; 93005; 96360; 96361; 99284; J7030; 99281

== ENCOUNTER 2017-08-17 17:44 | Emergency (ER) | payer SELFPAY ==
[~2017-08-17] VITALS: Ht 167.6 cm; Wt 59.0 kg
[~2017-08-17 17:44] MED LIST changes: -BACT800T5 PO; +LORA0.5T PO; -PAXI10TA2 PO; +PAXI10TA8 PO
[2017-08-17 17:46] VITALS: BP 105/62; PULSE 91; RESP 16; TEMP 98.4; O2SAT 98
[2017-08-17 18:10] VITALS: O2SAT 98
--- NOTE | 2017-08-17 18:26 | PD ---
HPI Chief Complaint: Abdominal Pain Time Seen by Provider: 18:03 Travel History International Travel<30 days: No Contact w/Intl Traveler<30days: No Traveled to known affect area: No History of Present Illness HPI Patient presents to the emergency department complaining of bloody stool and abdominal pain that began a few hours ago. New onset dark red blood and was mixed in the stool no weight loss, fever, chills, vomiting, vaginal discharge, chest pain, shortness of breath, or vaginal discharge. States that she had a colonoscopy approximately 25 years ago unsure of why they did it in the results. Her was recently diagnosed with hepatitis C last week. She is also reporting dysuria, nausea, and unsure of hematuria. PFSH Past Medical History Hx Anticoagulant Therapy: No Bipolar Disorder: Yes Anxiety: Yes Depression: Yes Diabetes: No Diminished Hearing: No Neurologic: Yes (RESTLESS LEG SYNDROME) Immunizations Current: Yes ?: Not Menopausal: Yes Past Surgical History Section: Yes (TIMES 2) Social History Alcohol Use: Yes (OCC) Tobacco Use: Yes (1/2 ppd) Substance Use: Yes (cocaine) Allergies-Medications (Allergen,Severity, Reaction): Coded Allergies: penicillin G (Unverified Allergy, Mild, HIVES, 08/17/17) Reported Meds & Prescriptions Reported Meds & Active Scripts Active Reported Lorazepam 0.5 Mg Tab Unknown Dose PO DAILY PRN Requip (Ropinirole HCl) 0.25 Mg Tab 0.25 Mg PO HS Paxil (Paroxetine HCl) 10 Mg Tab 20 Mg PO DAILY Trazodone (Trazodone HCl) 50 Mg Tab 50 Mg PO HS Review of Systems Except as stated in HPI: all other systems reviewed are Neg Physical Exam Narrative GENERAL: No acute distress. SKIN: Focused skin assessment warm/dry. HEAD: Atraumatic. Normocephalic. EYES: Pupils equal and round. No scleral icterus. No injection or drainage. ENT: No nasal bleeding or discharge. Mucous membranes pink and moist. NECK: Trachea midline. No JVD. CARDIOVASCULAR: Regular rate and rhythm. No murmur appreciated. RESPIRATORY: No accessory muscle use. Clear to auscultation. Breath sounds equal bilaterally. GASTROINTESTINAL: Abdomen soft, suprapubic tenderness, nondistended. Rectal: Brown stool, no visible blood, Hemoccult positive MUSCULOSKELETAL: No obvious deformities. No clubbing. No cyanosis. No edema. NEUROLOGICAL: Awake and alert. No obvious cranial nerve deficits. Motor grossly within normal limits. Normal speech. PSYCHIATRIC: Appropriate mood and affect; insight and judgment normal. Data Data Last Documented VS Vital Signs Date Time Temp Pulse Resp B/P (MAP) Pulse Ox O2 Delivery O2 Flow Rate FiO2 08/17/17 21:05 08/17/17 21:04 88 18 98 Room Air 08/17/17 17:46 98.4 Orders Orders Complete Blood Count With Diff (08/17/17 18:17) Comprehensive Metabolic Panel (08/17/17 18:17) Prothrombin Time / Inr (Pt) (08/17/17 18:17) Act Partial Throm Time (Ptt) (08/17/17 18:17) Urinalysis - C+S If Indicated (08/17/17 18:17) Ct Abd/Pel W Iv Contrast(Rout) (08/17/17 18:17) Iv Access Insert/Monitor (08/17/17 18:17) Ecg Monitoring (08/17/17 18:17) Oximetry (08/17/17 18:17) Sodium Chloride 0.9% Flush (Ns Flush) (08/17/17 18:30) Iohexol 350 Inj (Omnipaque 350 Inj) (08/17/17 19:15) Labs Laboratory Tests Test 08/17/17 18:30 08/17/17 19:30 White Blood Count 6.9 TH/MM3 Red Blood Count 4.61 MIL/MM3 Hemoglobin 13.4 GM/DL Hematocrit 40.0 % Mean Corpuscular Volume 86.6 FL Mean Corpuscular Hemoglobin 29.1 PG Mean Corpuscular Hemoglobin Concent 33.6 % Red Cell Distribution Width 12.7 % Platelet Count 235 TH/MM3 Mean Platelet Volume 9.1 FL Neutrophils (%) (Auto) 50.6 % Lymphocytes (%) (Auto) 36.0 % Monocytes (%) (Auto) 3.5 % Eosinophils (%) (Auto) 8.7 % Basophils (%) (Auto) 1.2 % Neutrophils # (Auto) 3.5 TH/MM3 Lymphocytes # (Auto) 2.5 TH/MM3 Monocytes # (Auto) 0.2 TH/MM3 Eosinophils # (Auto) 0.6 TH/MM3 Basophils # (Auto) 0.1 TH/MM3 CBC Comment DIFF FINAL Differential Comment Prothrombin Time 10.8 SEC Prothromb Time International Ratio 1.1 RATIO Activated Partial Thromboplast Time 28.9 SEC Blood Urea Nitrogen 8 MG/DL Creatinine 0.80 MG/DL Random Glucose 107 MG/DL Total Protein 7.7 GM/DL Albumin 3.6 GM/DL Calcium Level 8.5 MG/DL Alkaline Phosphatase 108 U/L Aspartate Amino Transf (AST/SGOT) 13 U/L Alanine Aminotransferase (ALT/SGPT) 18 U/L Total Bilirubin 0.3 MG/DL Sodium Level 141 MEQ/L Potassium Level 3.5 MEQ/L Chloride Level 108 MEQ/L Carbon Dioxide Level 26.1 MEQ/L Anion Gap 7 MEQ/L Estimat Glomerular Filtration Rate 74 ML/MIN Urine Color YELLOW Urine Turbidity CLEAR Urine pH 5.5 Urine Specific Delia 1.010 Urine Protein NEG mg/dL Urine Glucose (UA) NEG mg/dL Urine Ketones NEG mg/dL Urine Occult Blood NEG Urine Nitrite NEG Urine Bilirubin NEG Urine Urobilinogen 0.2 MG/DL Urine Leukocyte Esterase NEG Urine WBC 0-2 /hpf Urine Squamous Epithelial Cells 0-5 /hpf Microscopic Urinalysis Comment CULT NOT INDICATED MDM Medical Decision Making Medical Screen Exam Complete: Yes Emergency Medical Condition: Yes Interpretation(s) Labs: within normal limits Last Impressions Abdomen/Pelvis CT 08/17/171816 Signed Impressions: Service Date/Time: Saturday, August 17, 2017 19:12 - CONCLUSION: Unremarkable CT examination of the abdomen and pelvis for patient's age. Armando Gallegos MD Differential Diagnosis Lower GI bleed, upper GI bleed, colon cancer, colitis, diverticulitis Narrative Course Patient presents to the emergency department complaining of bloody stool. We will check CBC, chemistry, coags, UA with culture and sensitivity, CT abdomen and pelvis with IV contrast. Physician Communication Physician Communication [id number]: Spoke to ASHLEY Child weight control engineer. Advised the patient can call his office on Saturday for an appointment and they will run the hepatitis panel at that time as patient is concerned because her was just diagnosed with hepatitis C. Diagnosis Primary Impression: Bloody stool Referrals: Portia Bañuelos MD Patient Instructions: General Instructions Additional Instructions: 1. Followup with Dr. Bañuelos on Saturday. 2. Return to ER immediately for fever, vomiting, abdominal pain, dizziness, weakness, recurring bloody stool, or for any new/worrisome/worsening symptoms. Disposition: 01 DISCHARGE HOME Condition: Stable Alisia Cobb MD August 17, 2017 18:25
[2017-08-17] MEDS ORDERED: SODIUM CHLORIDE 0.9% FLUSH 10 ML FLUSH IV FLUSH PRN (18:30)
[2017-08-17 18:37] VITALS: BP 101/59; PULSE 80; RESP 16; O2SAT 98
[2017-08-17 18:41] LABS: AUTOMATED NEUTROPHIL # 3.5 TH/MM3 (1.8-7.7); BASOPHIL # 0.1 TH/MM3 (0-0.2); BASOPHIL % 1.2 % (0.0-2.0); EOSINOPHIL # 0.6 TH/MM3 (0-0.4); EOSINOPHIL % 8.7 % (0.0-4.0); HEMOGLOBIN 13.4 GM/DL (11.6-15.3); LYMPHOCYTE # 2.5 TH/MM3 (1.0-4.8); MEAN CELL VOLUME 86.6 FL (80.0-100.0); MEAN CORPUSCULAR HEMOGLOBIN 29.1 PG (27.0-34.0); MEAN CORPUSCULAR HGB CONC 33.6 % (32.0-36.0); MEAN PLATELET VOLUME 9.1 FL (7.0-11.0); MONO % 3.5 % (0.0-8.0); MONOCYTE # 0.2 TH/MM3 (0-0.9); NEUT % 50.6 % (16.0-70.0); PLATELET COUNT 235 TH/MM3 (150-450); RED BLOOD COUNT 4.61 MIL/MM3 (4.00-5.30); RED CELL DISTRIBUTION WIDTH 12.7 % (11.6-17.2); WHITE BLOOD COUNT 6.9 TH/MM3 (4.0-11.0)
[2017-08-17 18:55] LABS: CHLORIDE 108 MEQ/L (98-107); SODIUM (NA) 141 MEQ/L (136-145)
[2017-08-17 18:59] LABS: ALBUMIN 3.6 GM/DL (3.4-5.0); BICARBONATE 26.1 MEQ/L (21.0-32.0); BLOOD UREA NITROGEN 8 MG/DL (7-18); CALCIUM 8.5 MG/DL (8.5-10.1); GLUCOSE,RANDOM 107 MG/DL (74-106)
[2017-08-17 19:01] LABS: INTERNATIONAL NORMALIZED RATIO 1.1 RATIO; PROTHROMBIN TIME - PATIENT 10.8 SEC (9.8-11.6)
[2017-08-17 19:02] LABS: ALT (GPT) 18 U/L (10-53); AST (GOT) 13 U/L (15-37)
[2017-08-17 19:03] LABS: GLOMERULAR FILTRATION RATE 74 ML/MIN (>89)
[2017-08-17 19:04] LABS: TOTAL BILIRUBIN ADULT 0.3 MG/DL (0.2-1.0); TOTAL PROTEIN 7.7 GM/DL (6.4-8.2)
[2017-08-17 19:05] LABS: ALKALINE PHOSPHATASE 108 U/L (45-117)
[2017-08-17] MEDS ORDERED: IOHEXOL 350 MG/ML 10 ML VIAL (for RAD DIAG) IVCONTRAST ONE (19:15)
--- NOTE | 2017-08-17 19:27 | RADRPT ---
EXAM DATE/TIME: 08/17/2017 19:12 [facility] COMPARISON: No previous studies available for comparison. INDICATIONS : Blood in stool and lower abdomen pain today. IV CONTRAST: 68 cc Omnipaque 350 (iohexol) IV ORAL CONTRAST: No oral contrast ingested. RADIATION DOSE: 5.24 CTDIvol (mGy) MEDICAL HISTORY : None SURGICAL HISTORY : section. ENCOUNTER: Initial ACUITY: 1 day PAIN SCALE: 4/10 LOCATION: Bilateral lower quadrant abdomen TECHNIQUE: Volumetric scanning of the abdomen and pelvis was performed. Using automated exposure control and ad justment of the mA and/or kV according to patient size, radiation dose was kept as low as reasonably achievable to obtain optimal diagnostic quality images. DICOM format image data is available electro nically for review and comparison. FINDINGS: LOWER LUNGS: The visualized lower lungs are clear. LIVER: Homogeneous density without lesion. There is no dilation of the biliary tree. No calcified gallston es. SPLEEN: Normal size without lesion. PANCREAS: Within normal limits. KIDNEYS: Normal in size and shape. There is no mass, stone or hydronephrosis. ADRENAL GLANDS: Within normal limits. VASCULAR: There is no aortic aneurysm. BOWEL/MESENTERY: The stomach, small bowel, and colon demonstrate no acute abnormality. There is no free intraperitone al air or fluid. No inflammatory changes are seen. There is some stool throughout the colon. ABDOMINAL WALL: Within normal limits. RETROPERITONEUM: There is no lymphadenopathy. BLADDER: No wall thickening or mass. REPRODUCTIVE: Within normal limits. INGUINAL: There is no lymphadenopathy or hernia. MUSCULOSKELETAL: Within normal limits for patient age. CONCLUSION: Unremarkable CT examination of the abdomen and pelvis for patient's age. Armando Gallegos MD on August 17, 2017 at 19:22 Board Certified Radiologist. This report was verified electronically.
[2017-08-17 19:40] LABS: BILIRUBIN, URINE NEG (NEG); BLOOD, URINE NEG (NEG); GLUCOSE,URINE NEG (NEG); KETONE, URINE NEG (NEG); NITRITE,URINE NEG (NEG); PH, URINE 5.5 (5.0-8.5); URINE COLOR YELLOW (YELLW/STRAW); URINE LEUKOCYTE ESTERASE NEG (NEG)
[2017-08-17 19:47] LABS: SQUAMOUS EPITHELIAL CELL URINE 0-5 /hpf (0-5); WBC, URINE 0-2 /hpf (0-5)
[2017-08-17 21:04] VITALS: BP 102/62; PULSE 88; RESP 18; O2SAT 98
== END 2017-08-17 21:13 | disposition home or self-care (01) ==
LOC: PHED 17:44
DX: K92.1 Melena (principal); B19.20 Unspecified viral hepatitis C without hepatic coma; F31.9 Bipolar disorder, unspecified; F41.9 Anxiety disorder, unspecified; G25.81 Restless legs syndrome; F17.200 Nicotine dependence, unspecified, uncomplicated; F14.90 Cocaine use, unspecified, uncomplicated
CPT/HCPCS: 74177; 80053; 81001; 85025; 85610; 85730; 99285; Q9967